=== PATIENT | male | born 1980 | race Caucasian/White ===

== ENCOUNTER 2016-12-17 12:16 | Day surgery (SDC) | payer OTHER ==
--- NOTE | 2016-12-17 08:03 | HP ---
DATE OF SURGERY: 12/17/2016 HISTORY OF PRESENT ILLNESS: The patient is a 36 year-old for the past one and a half years having some symptoms of enlarging bump as well as a back density question of lipoma. I felt he would benefit from excisional biopsy of the back mass or lipoma as well as repair of incarcerated umbilical hernia. PAST MEDICAL HISTORY: Asthma. PAST SURGICAL HISTORY: None. MEDICATIONS: None. ALLERGIES: PENICILLIN. FAMILY HISTORY: Diabetes. SOCIAL HISTORY: No smoking. He does drink a glass of wine a day. REVIEW OF SYSTEMS: Twelve systems reviewed per admission assessment. No chest pain or palpitations other systems negative or noncontributory as above and per preadmission questionnaire. PHYSICAL EXAMINATION: GENERAL: No acute distress. HEENT: Sclerae nonicteric. NECK: No JVD. CHEST: Equal excursion, nonlabored breathing. CVS: Regular rate and rhythm. ABDOMEN: Soft. No peritoneal signs. He does have an incarcerated umbilical area hernia likely some preperitoneal fat or omentum. Otherwise nontender. No peritoneal signs. EXTREMITIES: No edema. NEURO: Alert, oriented, moving extremities symmetrically. No gross motor deficits noted. BACK: Subcutaneous mass or possible lipoma. IMPRESSION: Enlarging incarcerated umbilical hernia as well as back mass or lipoma. I feel he would benefit from excisional biopsy of the back mass, general risk of bleeding or infection, risk of hematoma or seroma formation, general risk of anesthesia, deep venous thrombosis, pulmonary embolism, pneumonia in regards to the hernia. General risk of aches, pains, burning or numbness, risk of hernia recurrence, risk of ingrown hair or superficial suture reaction, risk if the mesh became infected likely would need to be removed, general risk of aches, pains, burning or numbness, risk of adhesion or scar formation or obstruction, remote risk of mesh fracture or failure possibly creating issues of viscera or other structures possibly requiring other procedures or ongoing morbidities. He understands. Will proceed with outpatient repair of incarcerated umbilical hernia with mesh, incisional biopsy of back mass or lipoma as an outpatient.
[~2016-12-17 12:16] MED LIST: DILAUDID 2 MG INJECTION IV ONE; DIPRIVAN 200 MG/20 ML IV ONE; Decadron 4 MG INJ IV ONE; Lactated Ringers 1,000 ML IV ONE; Quelicin Fliptop 200 MG/10 ML IJ ONE; SUBLIMAZE 100 MCG/2 ML IV ONE; Sensorcaine 0.25% 10 ML ONE; TORAdol 30 mg Injection IJ ONE; Zemuron 100 MG/10 ML IJ ONE; Zofran 4 MG/2 ML VIAL IV ONE
[2016-12-17] MEDS ORDERED: Lactated Ringers 1,000 ML IV SCH (12:30)
[2016-12-17] MEDS ORDERED: Levofloxacin 500MG/100ML D5W 100 ML IV SCH (12:30)
[2016-12-17] MEDS ORDERED: SUBLIMAZE 100 MCG/2 ML ONE (16:16)
[2016-12-17] MEDS ORDERED: Lactated Ringers 1,000 ML IV ONE (16:36)
[2016-12-17] MEDS ORDERED: Zofran 4 MG/2 ML VIAL ONE (18:13)
[2016-12-17] MEDS ORDERED: Zofran 4 MG/2 ML VIAL IV PRN (18:16)
[2016-12-17 18:19] VITALS: O2SAT 98
[2016-12-17 18:54] VITALS: BP 118/61; PULSE 71
--- NOTE | 2016-12-18 07:42 | OP ---
SURGERY DATE/TIME: 12/17/2016 1442 PREOPERATIVE DIAGNOSES: 1) Symptomatic incarcerated umbilical hernia. 2) Enlarging symptomatic back or flank subcutaneous mass or lipoma. POSTOPERATIVE DIAGNOSES: 1) Symptomatic incarcerated umbilical hernia. 2) Enlarging symptomatic back or flank subcutaneous mass or lipoma. PROCEDURES: 1) Repair of incarcerated umbilical hernia with mesh. 2) Excisional biopsy of 3 cm lipoma back/flank on the left. PAD MACHINE FEEDER: Fran Posadas, Medical Student III. SURGEON: Dr. Jasson Villanueva. ANESTHESIA: General. ESTIMATED BLOOD LOSS: Minimal. INDICATIONS: As noted above. Risks and benefits explained in detail and not limited to and consent obtained. The procedure is explained in detail but not limited to and consent was obtained. DESCRIPTION OF PROCEDURE AND FINDINGS: The patient is taken to the operating room. General anesthesia induced, placed in lateral position. Appropriate padding and positioned with sharp bag per anesthesia and OR staff. The back and flank were prepped and draped in usual sterile fashion. A transverse incision made left lower back/flank area. Dissection carried down subcutaneous tissue circumferentially around the lobulated lipomatous density noted about 3 cm and dissected off the underlying fascia. Good hemostasis noted. Deep subcu and superficial subcu were closed with 3-0 Vicryl down to the level of the fascia. Skin closed with 4-0 Vicryl and some interrupted 3-0 Prolene was placed to reinforce given the location on the back. Steri-strips and sterile dressing applied. The patient was then placed in supine position. The abdomen is prepped and draped in usual sterile fashion. Most of this complex hernia was more inferior. A more inferior transverse incision made umbilical area. Dissection carried down circumferentially around this lobulated moderate incarcerated umbilical area hernia. This was carefully freed down to the level of the fascia with the fascial attachments released allowing it to be reduced back into the abdomen. Once this was accomplished umbilical tissue had been released to allow for better suture fixation to the fascia. Straps pulled upwards. Interrupted 0 Prolene 1 cm part of this placed around the edges in a tension-free manner. Once this was done keeping the mesh as flat as possible the attenuated fascia is then closed over the top isolating the mesh away from the rest of the subcu allowing interrupted 0 PDS. Marcaine local injected along the skin and fascial area. It was irrigated out. Good hemostasis noted. There is scant ooze from the umbilical tissue and some pin point cautery was used. At this point the umbilicus was then inverted downward to the level of the fascia with interrupted 3-0 Vicryl in tension free manner. Superficial subcu closed with 3-0 Vicryl. Skin closed with 4-0 Vicryl. Steri-Strips and sterile dressing applied. The patient tolerated the procedure well. There were no immediate complications. Findings discussed with the family out in the waiting area. He was transferred to the recovery room in stable condition.
== END 2016-12-17 18:55 | disposition home or self-care (01) ==
LOC: SDC 12:16
PROVIDERS: ATTEND Surgery
PROC: 0WUF0JZ Supplement Abdominal Wall with Synthetic Substitute, Open Approach (ICD-10-PCS; principal; 2016-12-17)
PROC: 0HB6XZX Excision of Back Skin, External Approach, Diagnostic (ICD-10-PCS; 2016-12-17)
DX: K42.0 Umbilical hernia with obstruction, without gangrene (principal); D17.1 Benign lipomatous neoplasm of skin and subcutaneous tissue of trunk; R22.2 Localized swelling, mass and lump, trunk; J45.909 Unspecified asthma, uncomplicated
CPT/HCPCS: 00300; 00830; 36415; J0330; J1100; J1170; J1885; J1956; J2405; J2704; J3010; L0625